=== PATIENT | male | born 1985 | race Caucasian/White ===

== ENCOUNTER 2019-02-18 16:50 | Emergency (ER) | payer OTHER ==
[~2019-02-18] VITALS: Ht 195.6 cm; Wt 77.1 kg
[2019-02-18 16:52] VITALS: BP 102/63
[2019-02-18] MEDS ORDERED: IBUPROFEN 600 MG TABLET PO ONE ×2 (17:28→17:30)
== END 2019-02-18 18:11 | disposition home or self-care (01) ==
LOC: ER 16:52
DX: M54.2 Cervicalgia (principal); M54.9 Dorsalgia, unspecified; G35 Multiple sclerosis; Z60.2 Problems related to living alone; V49.49XA Driver injured in collision with other motor vehicles in traffic accident, initial encounter; Y93.89 Activity, other specified; Y92.413 State road as the place of occurrence of the external cause; Y99.8 Other external cause status